=== PATIENT | female | born 1985 | race Caucasian/White ===

== ENCOUNTER 2017-02-17 00:38 | Emergency (ER) | payer BC, OTHER ==
[2017-02-17 01:30] LABS: Hematocrit 38.6 % (37.0-47.0); Mean Corpuscular Hemoglobin 28.6 pg (27-31); Mean Corpuscular Hgb Conc 33.7 g/dl (32-36); Mean Platelet Volume 9.7 fl (6.0-9.5); Neutrophil # 3.7 K/mm3 (1.3-6.0); Platelet Count 292 K/mm3 (150-450); Red Blood Count 4.54 M/mm3 (4.2-5.4); Red Cell Distribution Width 12.5 % (11.5-14.0); White Blood Count 7.8 K/mm3 (4.0-10.5)
[2017-02-17 01:38] LABS: Urine Bilirubin Negative (NEGATIVE); Urine Blood Negative /ul (NEGATIVE); Urine Ketone Negative (NEGATIVE); Urine Nitrite Negative (NEGATIVE); Urine Protein Negative (NEGATIVE); Urine Specific Gravity 1.025 SP.GR. (1.005-1.010); Urine Urobilinogen Normal (NORMAL)
[2017-02-17 01:43] LABS: Urine Amorphous Sediment Moderate - 2+ (NONE-FEW); Urine Appearance Clear; Urine Bacteria None Seen; Urine Color Yellow; Urine Mucus Few - 1+; Urine RBC 0-5 /hpf (0-5); Urine WBC 0-5 /hpf (0-5)
--- OUTSIDE RECORDS SUMMARY | 2017-02-17 01:46 | XMS REPORT | Continuity of Care Document ---
:1985 Author Organization [facility] ([facility]) Address [address] [place] [address] Phone [phone] Care Team Providers Name Role Phone Unavailable Primary Care Provider Unavailable Source Comments This disclosure is being made pursuant to the Care Everywhere program, applicable federal and state laws, and may not contain all informaitonavailable regarding this patient.[facility] ([facility]) Active Allergies and Adverse Reactions Not on File Current Medications Not on file Active Problems Not on file Social History Tobacco Use Types Packs/Day Years Used Date Never Assessed Plan of Care Health Maintenance Due Date Last Done Comments Hepatitis B Vaccine (1 of 3 - Primary Series) 1985 Tdap Vaccine 1996 Lipid Disorder Screening 2003 MMR Vaccine 2003 Td Vaccine 2003 Varicella Vaccine (1 of 2 - Adult - No Evidence of 2003 Immunity) Cervical Cancer Screening 2015 Influenza Vaccine: Seasonal (#1) 05/01/2016 Results from Last 3 Months Not on file
[2017-02-17 01:47] LABS: ALT 21 U/L (19-67); AST 15 U/L (0-48); Albumin * 3.9 gm/dl (3.4-5.0); Alkaline Phosphatase * 41 U/L (50-170); Anion Gap 8.9 mmol/L (6.8-13.8); BUN/Creatinine Ratio 18.3 (9.0-21.6); Bilirubin, Total 0.2 mg/dL (0.0-1.1); Blood Urea Nitrogen 13 mg/dL (3-23); Calcium * 9.2 mg/dL (7.9-10.9); Carbon Dioxide 29.6 mmol/L (24-32.6); Chloride 106 mmol/L (97-106); Glucose * 97 mg/dL (70-110); Lipase 147 U/L (73-393); Potassium 3.5 mmol/L (3.4-4.6); Sodium 141 mmol/L (132-142); Total Protein 7.2 gm/dL (6.2-8.2)
[2017-02-17 01:48] LABS: Cocaine Ur Negative (NEGATIVE); Urine Barbiturate Negative (NEGATIVE); Urine Benzodiazepines Negative (NEGATIVE); Urine Opiates Negative (NEGATIVE); Urine PCP Negative (NEGATIVE); Urine THC Negative (NEGATIVE)
[2017-02-17] MEDS ORDERED: DICYCLOMINE HCL 20 MG TABLET PO ONE (01:59)
--- NOTE | 2017-02-17 02:05 | ERNOTE ---
Abdominal HPI - Narrative Date of Service: 02/17/17 - General Chief Complaint: Abdominal Pain Time Seen by Provider: 02/17/17 00:55 - Immun/Allergies/Home Medications Immunizatons: IMMUNIZATION HX Immunizations Up to Date Yes Allergies/Adverse Reactions: Allergies No Known Allergies Allergy (Verified 07/13/16 11:57) Home Medications: HOME MEDICATIONS Cholecalciferol (Vitamin D3) [Vitamin D3] 1,000 unit PO DAILY 02/17/17 [Last Taken Unknown] Dicyclomine HCl [Bentyl] 20 mg PO TID PRN #14 tablet 02/17/17 [Last Taken Unknown] Multivitamin [One Daily Essential] 1 each PO DAILY 02/17/17 [Last Taken Unknown] Vit B12/Folic Acid/B6/Aa15 [Glycotrol Capsule] 1 each PO DAILY 02/17/17 [Last Taken Unknown] - History of Present Illness Narrative: HERE FOR RECHECK OF PERIUMBILICAL ABDOMINAL PAIN WITH SOME NAUSEA AND PROBLEMS OF DIARRHEA THAT STARTED ON TRIP TO [facility] WHERE SHE SAID SHE HAD DIARRHEA. HER VISIT THERE WAS FOR A WEEK AT THE END OF DECEMBER AND SHE HAS BEEN BACK HERE SINCE THEN. SHE IS ONLY HAVING ONE LOOSE STOOL IN THE PAST 24 HOURS. NO KNOWN FEVER. NO VOMITING. SHE SAW DR SCHWAB January AND HAD NEGATIVE BLOOD WORK AND URINE. SHE SAYS THAT A STOOL TEST WAS ORDERED FOR "PARASITES". SHE WAS HERE FOR SIMILAR COMPLAINTS LAST FALL ( 07/16/2016) AND HAD NL. LABS AND URINE THEN. SHE SAYS SHE ALSO HAS SOME CHRONIC PROBLEMS WITH HEAVY MENSTRUAL BLEEDING AND CRAMPS FOR WHICH SHE USES LORYNA AND SHE THINKS THAT IT DOESN'T AGREE WITH HER . SHE HAS AN APPOINTMENT TO SEE DR ASHER FOR THAT ON SUNDAY, 19 FEBRUARY. SHE SAYS SHE IS NOT TAKING ANYTHING FOR HER DISCOMFORT OTHER THAN IBUPROFEN. Review of Systems - Review of Systems Constitutional: Present: See HPI EYE: Present: no symptoms reported ENT: Present: no symptoms reported Respiratory: Present: no symptoms reported Cardiology: Present: no symptoms reported Gastrointestinal/Abdominal: Present: See HPI, nausea, diarrhea - ACTUALLY ONLY DAOILY LOOSE STOOL NOW. Genitourinary: Present: no symptoms reported Musculoskeletal: Present: no symptoms reported Neurological: Present: no symptoms reported Endocrine: Present: See HPI - CONCERNS ABOUT TOLERATING LORYNA. Psych: Present: no symptoms reported All Other Systems: All systems neg except as marked - Patient's Past Medical History Patient History - Medical: Anxiety, Headache Patient History - Cardiac/Respiratory: No pertinent hx Patient History - Cancer: No Hx of Cancer Patient History - Surgical Procedures: Tubal Ligation Patient History - Other: None - Family History Mother Family History - Medical: Anxiety, Bipolar, Depression - Social History Living Situations: spouse Abuse History: No History of abuse Psych History: No pertinent hx Smoking Status: Never smoker Have you smoked in the past 12 months: No Do you dip or chew tobacco: No Alcohol Use: occasionally Drug Use: none - Immunizations Immunizations Up to Date: Yes Physical Exam - Physical Exam General Appearance: Present: wd/wn, alert, mild distress Respiratory: Present: no respiratory distress, normal breath sounds, no accessory muscle use, chest nontender, lungs clear Cardiovascular/Chest: Present: regular rate, rhythm, no murmur, normal peripheral pulses Gastrointestinal/Abdominal: Present: normal bowel sounds, nontender, nondistended, soft, no organomegaly - SHE SAYS SHE IS TENDER IN PERIUMBILICAL AREA BUT HAS NO PAIN TO PALPATION. NO GUARDING OR REBOUND. NO MASSES. HER ABDOMEN IS VERY SOFT. NO ORGANOMEGALY. Back Exam: Present: normal inspection, no CVA tenderness Extremity Exam: Present: normal inspection Neurological Exam: Present: alert, oriented Skin Exam: Present: normal color ED Progress - Results and Orders Patient's Lab Results:: I have reviewed the patient's lab results. Results and Orders: LABS, CBC, CMP, CRP, URINE AND URINE DS , ARE ALL NORMAL. - Vital Signs Patient's Vital Signs:: I have reviewed the patient's vital signs. Vital Signs: Vital Signs 02/17/17 00:42 Temperature 36.4 C L Pulse Rate 63 Respiratory 16 Rate Blood Pressure 176/103 O2 Sat by Pulse 98 Oximetry - X-Ray X-Ray #1 X-Ray: abdomen Interpretation: Reviewed by me - NEG. SHE HAS AN IUD AND HAS HAD BTL. - Progress/Reassessment Chief Complaint: Abdominal Pain Departure - Departure Clinical Impression: Periumbilical abdominal pain of unknown etiology Disposition: Home Follow Up Needed Condition: Good Instructions: Abdominal Pain, Adult, [id number] Additional Instructions: I FIND NO CAUSE FOR YOUR COMPLAINTS TONIGHT BUT FIND NO SIGN OF EMERGENCY PROBLEM EITHER. YOUR URINE AND LABS ARE NORMAL THEY WERE TWO DAYS AGO. THE RADIOLOGIST READS THE XRAYS NORMAL ALSO. CONTINUE WITH CLEAR LIQUIDS AND LIGHT DIET. CONSIDER A TRIAL OF PROBIOTIC AND AWAIT RESULTS OF THE YOUR FAMILY DOCTOR'S STOOL TESTING. I HAVE PRESCRIBED BENTYL A TRIAL FOR YOUR ABDOMINAL CRAMPING TO SEE IF IT WILL HELP. FOLLOW UP WITH YOUR FAMILY DOCTOR AND OB DOCTOR PLANNED. IF IBUPROFEN IS NOT HELPING YOU COULD TRY A DIFFERENT ANTI- INFLAMMATORY, LIKE ALEVE , 2 TABS EVERY 12 HOURS. Referrals: Sujey Schwab MD [Primary Care Provider] - Prescriptions: Dicyclomine HCl [Bentyl] 20 mg PO TID PRN #14 tablet PRN Reason: Pain
[2017-02-17] MEDS ORDERED: DICYCLOMINE HCL 20 MG TABLET ONE (02:06)
[2017-02-17 02:39] VITALS: BP 156/86
== END 2017-02-17 02:37 | disposition home or self-care (01) ==
LOC: ER 00:38
DX: R10.33 Periumbilical pain (principal)

== ENCOUNTER 2017-03-28 06:54 | Day surgery (SDC) | payer BC, OTHER ==
[~2017-03-28 06:54] MED LIST: RINGERS SOLUTION,LACTATED 1,000 ML IV PRN; ceFAZolin SODIUM 1 GM in DEXTROSE 5 % IN WATER 100 ML IV PRN
[2017-03-28] MEDS ORDERED: RINGERS SOLUTION,LACTATED 1,000 ML IV ONE ×2 (07:26→09:05)
[2017-03-28] MEDS ORDERED: LIDOCAINE HCL/EPINEPHRINE 50 ML VIAL IJ ONE (08:00)
--- NOTE | 2017-03-28 09:30 | OR ---
Operative Report - Dictated Report Narrative: DATE OF PROCEDURE: 03/28/2017 INDICATIONS: 31-year-old with dysmenorrhea and menometrorrhagia unresponsive to conservative therapy PREOPERATIVE DIAGNOSIS: Dysmenorrhea and menometrorrhagia unresponsive to conservative therapy POSTOPERATIVE DIAGNOSIS: Same PROCEDURE: Total vaginal hysterectomy, left ovarian cystotomy, Cystoscopy SURGEON: Liat Anaya D.O. FLAGGER: OR staff ANESTHESIA: General ESTIMATED BLOOD LOSS: 25 mL URINE OUTPUT: Not measured FLUID REPLACEMENT: 900 mL SPECIMEN(S): Uterus and cervix FINDINGS: 12 week size boggy uterus with large patulous cervix. 4 cm simple cyst on left ovary TECHNIQUE: The patient was taken to the operating room and placed in dorsal lithotomy position after adequate general anesthesia was obtained SCDs placed and 1 g of Ancef given intravenously. The cervix was grasped with 2 single- tooth tenacula and a paracervical block was given using 1% lidocaine with epinephrine. Posterior colpotomy was performed using Ferrari scissors. A long weighted speculum was placed into the posterior cul-de-sac. Anterior colpotomy was performed with Ferrari scissors and a right angle Erika retractor was placed to retract the bladder. The bladder pillars were coagulated with the LigaSure device and transected. The left uterosacral ligament was grasped with a curved Longs transected and Erika stitch tied. The exact same was done on the other side. The remaining pedicles were then sequentially doubly coagulated and transected distally using LigaSure device and Ferrari scissors. The uterus was removed in total. A large left ovarian cyst was perforated with forceps, draining clear fluid. The edges of the cysts were coagulated with the LigaSure device to provide excellent hemostasis. The vaginal cuff was closed with a series of [id number] 0 Vicryl sutures. Cystoscopy was performed noting urine spurting freely from both ureteral orifices. The bladder was drained and the patient was transferred to postanesthesia care unit in good condition. Sponge, lap, instrument, and needle count were correct x 2. POSTOPERATIVE CONDITION: Good
--- NOTE | 2017-03-28 10:53 | PATH ---
PHYSICIAN: Ash Anaya DO LAB#: [id number] SPECIMEN DATE: 03/28/2017 SPECIMEN: Uterus CLINICAL INFORMATION: Menorrhagia, dysmenorrhea, chronic pelvic pain. Last menstrual period last 4 months. GROSS DESCRIPTION: The specimen is received in a formalin filled container appropriately designated, "uterus." The specimen consists of 195 g 11.1 x 7.5 x 5.1 cm washburn-pink uterus with an unremarkable serosal surface. The 3.5 cm cervix shows an unremarkable squamo-columnar junction. The 4.7 x 3.2 cm endometrial cavity shows a 0.2 cm pink creamy endometrial lining. The 3.1 cm myometrium is nodular but shows no focal lesions. Summary of cassettes: 1 anterior cervix; 2 posterior cervix; 3 anterior endometrium; 4 posterior endometrium; 5 transmural section. DIAGNOSIS: UTERUS (195 GRAM), TOTAL VAGINAL HYSTERECTOMY: CERVIX: -NO PATHOLOGIC FINDINGS ENDOMETRIUM: -DYSSYNCHRONOUS SECRETORY ENDOMETRIUM MYOMETRIUM: -EXTENSIVE ADENOMYOSIS COMMENT: The findings correlate with the prior endometrial biopsy ([facility] [id number] reported 03/14/2017) and clinical history provided. No evidence of atypia or malignant neoplasia.
[2017-03-28] MEDS ORDERED: MORPHINE SULFATE 2 MG/ML DISP.SYRIN IV PRN (11:30)
[2017-03-28] MEDS ORDERED: IBUPROFEN 800 MG TABLET PO PRN (11:31)
[2017-03-28] MEDS ORDERED: oxyCODONE HCL/ACETAMINOPHEN 1 TAB TABLET PO PRN (11:31)
[2017-03-28 12:14] VITALS: BP 112/74
== END 2017-03-28 06:55 | disposition home or self-care (01) ==
LOC: AMB 06:54
PROVIDERS: ATTEND Obstetrics & Gynecology
PROC: 0UTC7ZZ Resection of Cervix, Via Natural or Artificial Opening (ICD-10-PCS; 2017-03-28)
PROC: 0U9G7ZZ Drainage of Vagina, Via Natural or Artificial Opening (ICD-10-PCS; 2017-03-28)
PROC: 0UT97ZZ Resection of Uterus, Via Natural or Artificial Opening (ICD-10-PCS; principal; 2017-03-28 08:00)
DX: N83.292 Other ovarian cyst, left side (principal); N92.1 Excessive and frequent menstruation with irregular cycle; N94.6 Dysmenorrhea, unspecified; D50.9 Iron deficiency anemia, unspecified; K21.9 Gastro-esophageal reflux disease without esophagitis; Z68.30 Body mass index [BMI] 30.0-30.9, adult